=== PATIENT | female | born 1960 | race Caucasian/White ===

== ENCOUNTER → 2024-04-20 13:48 | Outpatient (REF) | payer OTHER, SELFPAY | LOC: HWWDC 13:48 | PROVIDERS: ATTENDING PHYSICIAN Family Medicine; REFERRING PHYSICIAN Obstetrics & Gynecology Gynecology | DX: Z12.31 Encounter for screening mammogram for malignant neoplasm of breast (principal) | CPT/HCPCS: 77063; 77067 ==

== ENCOUNTER → 2025-07-03 08:23 | Outpatient (REF) | payer OTHER, SELFPAY | LOC: HWWDC 08:23 | PROVIDERS: ATTENDING PHYSICIAN Obstetrics & Gynecology Gynecology; FAMILY PHYSICIAN Family Medicine | DX: Z78.0 Asymptomatic menopausal state (principal); Z12.31 Encounter for screening mammogram for malignant neoplasm of breast | CPT/HCPCS: 77063; 77067; 77080 ==